=== PATIENT | male | born 1975 | race Caucasian/White ===

== ENCOUNTER 2020-11-06 08:46 | Inpatient (IN) | payer OTHER ==
[~2020-11-06] VITALS: Ht 188 cm; Wt 88.0 kg
--- NOTE | 2020-11-06 09:00 | NUR ---
PT IS IN ROOM #2A. DR BUENO EVALUATED THE PT.
[2020-11-06] MEDS ORDERED: VANCOMYCIN IV 1,000 MG in IV DEXTROSE 5% 250 ML IV ONE (09:15)
[2020-11-06] MEDS ORDERED: IV NORMAL SALINE 1000 ML BAG IV ONE (09:15)
[2020-11-06] MEDS ORDERED: ONDANSETRON 4 MG/2 ML VIAL IV ONE (09:15)
[2020-11-06] MEDS ORDERED: HYDROMORPHONE 1 MG/1 ML DISP.SYRIN IV ONE (09:15)
[2020-11-06] MEDS ORDERED: CEFTRIAXONE 1 G in IV DEXTROSE 5% 50 ML IV ONE (09:15)
[2020-11-06] MEDS ORDERED: SWABABLE VALVE TRANSFER SET EA MC ONE (09:23)
[2020-11-06] MEDS ORDERED: IV NORMAL SALINE 250 ML IV ONE (09:24)
[2020-11-06] MEDS ORDERED: IOHEXOL 300MG/ML 100 ML INFUS..BTL ONE (09:24)
[2020-11-06 09:34] LABS: HEMATOCRIT 41.3 % (36.7-47.1); MEAN CORPUSCULAR HEMOGLOBIN 29.9 uug (23.8-33.4); MEAN CORPUSCULAR VOLUME 88.3 fL (73.0-96.2); PLATELET COUNT (AUTO) 290 K/uL (152-348)
[2020-11-06] MEDS ORDERED: HYDROMORPHONE 1 MG/1 ML DISP.SYRIN ONE (09:36)
[2020-11-06] MEDS ORDERED: ONDANSETRON 4 MG/2 ML VIAL ONE (09:36)
[2020-11-06] MEDS ORDERED: VANCOMYCIN IV 200 ML ONE (09:37)
[2020-11-06] MEDS ORDERED: CEFTRIAXONE /D5W 50ML IVPB **ER PYXIS IV ONE (09:37)
[2020-11-06 09:43] LABS: CARBON DIOXIDE 27 mmol/L (21-32); CHLORIDE 102 mmol/L (98-107); CREATININE 1.2 mg/dL (0.6-1.3); GLUCOSE 159 mg/dL (74-106); POTASSIUM 4.2 mmol/L (3.5-5.1); UREA NITROGEN, BLOOD 15 mg/dL (7-18)
[2020-11-06 09:56] LABS: ALANINE AMINOTRANSFERASE 18 U/L (16-63); ALKALINE PHOSPHATASE 88 U/L (50-136); ASPARTATE AMINOTRANSFERASE 12 U/L (15-37); BILIRUBIN,DIRECT < 0.1 mg/dL (0.0-0.2); BILIRUBIN,TOTAL 0.2 mg/dL (0.2-1.0); TOTAL PROTEIN, SERUM 7.3 g/dL (6.4-8.2)
[2020-11-06 13:09] LABS: *BILIRUBIN,URIN NEGATIVE (NEGATIVE); *BLOOD, URINE NEGATIVE (NEGATIVE); *CLARITY,URINE SLIGHTLY CLOUDY (CLEAR); *COLOR,URINE YELLOW (YELLOW); *KETONES,URINE NEGATIVE (NEGATIVE); *UROBILINOGEN,URINE 0.2 E.U./dl (NORMAL); LEUKOCYTE ESTERASE ,URINE NEGATIVE (NEGATIVE); NITRITE, URINE NEGATIVE (NEGATIVE); PH,URINE 5.5 (5.0-8.0); UGLUCOSE NEGATIVE (NEGATIVE)
[2020-11-06] MEDS: IV NS 1000 ML 1,000 ML IV PRN (13:15)
[2020-11-06] MEDS ORDERED: ACETAMINOPHEN 325 MG TABLET PO PRN (13:15)
[2020-11-06] MEDS ORDERED: MAGNESIUM HYDROXIDE 30 ML LIQUID UDC PO PRN (13:15)
[2020-11-06] MEDS ORDERED: ZOLPIDEM 5 MG TABLET PO PRN (13:15)
[2020-11-06] MEDS ORDERED: HYDROCODONE/APAP 5-325MG TABLET PO PRN (13:15)
[2020-11-06] MEDS ORDERED: Z GUARD REMEDY PASTE 57 GM TUBE TOP PRN (13:15)
[2020-11-06] MEDS ORDERED: ONDANSETRON 4 MG/2 ML VIAL IV PRN (13:15)
--- NOTE | 2020-11-06 13:37 | NUR ---
REPORT WAS GIVEN TO RN M/S. PT WAS TRANSFERED TO ROOM #301A.
[2020-11-06 14:22] LABS: BACTERIA,URINE MODERATE /HPF (NONE SEEN); CALCIUM OXALATE CRYSTALS,UR MODERATE /HPF (NONE SEEN); SQUAMOUS EPITHELIAL CELL,UR FEW /HPF (NONE SEEN); URINE AMORPHOUS URATE MODERATE /HPF
--- NOTE | 2020-11-06 14:30 | NUR ---
Received patient from ED via [facility]. Patient awake, alert and oriented x 4. On room air. No signs of acute distress. Oriented patient to unit and room. Call light within reach. Bed locked and in low position. Will continue to monitor.
[2020-11-06] MEDS: PIPERACILLIN SODIUM/TAZOBACTAM 3.375 G in IV DEXTROSE 5% 50 ML IV SCH ×2 (16:43→21:12)
[2020-11-06] MEDS: VANCOMYCIN IV 1,500 MG in IV DEXTROSE 5% 500 ML IV SCH (18:09)
[2020-11-06 20:00] VITALS: BP 108/61
[2020-11-07] MEDS: PIPERACILLIN SODIUM/TAZOBACTAM 3.375 G in IV DEXTROSE 5% 50 ML IV SCH ×4 (02:28→22:36)
[2020-11-07 04:00] VITALS: BP 114/65
[2020-11-07] MEDS: VANCOMYCIN IV 1,500 MG in IV DEXTROSE 5% 500 ML IV SCH ×2 (05:22→17:34)
--- NOTE | 2020-11-07 06:12 | NUR ---
Shift End Report: Vs stable. Continue on IV antibiotics of Merrem and Vancomycin without s/s of adverse reaction noted. No complaint of pain presented. Slept good. No significant event reported all night. All needs attended and met. Continue care as planned.
[2020-11-07 06:25] LABS: HEMATOCRIT 38.5 % (36.7-47.1); MEAN CORPUSCULAR HEMOGLOBIN 28.8 uug (23.8-33.4); MEAN CORPUSCULAR VOLUME 87.4 fL (73.0-96.2); PLATELET COUNT (AUTO) 305 K/uL (152-348)
[2020-11-07 06:46] LABS: CREATININE 1.1 mg/dL (0.6-1.3); POTASSIUM 4.5 mmol/L (3.5-5.1)
[2020-11-07 11:23] VITALS: BP 125/67
--- NOTE | 2020-11-07 14:04 | NUR ---
Candy Butcher Consultation: Candy Butcher consultation requested for homelessness. Per patient's chart, patient came to the ED for a right buttock abscess. This MILK AND CREAM GRADER met with the patient in his hospital room. Patient is a 45 year old male, awake, alert, oriented, receptive to speaking with this MILK AND CREAM GRADER. Patient reports being homeless off-and-on for about 7 years. Patient [place] [address] [place] [facility]. Patient states he received some donated clothing, and believes there may have been bugs in the clothes which resulted in a bug bite that developed into an abscess. Patient states that he asked his friend to drive him to the hospital on 11/06 to seek treatment. Patient is independent with ADL's, has [employer] insurance, however stated he does not have any income from the government. 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 Patient denied having any significant medical problems. Patient denied mental illness. 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 Patient stated he has been using meth for years. Patient reported being in rehab "a long time ago" for substance use, however he relapsed soon afterwards. Discharge plans discussed, and patient stated he is open to going to a [place] facility, if one is available. Otherwise, patient stated he will return to his previous living arrangement. This MILK AND CREAM GRADER offered patient the homeless resource packet, and patient was receptive. This MILK AND CREAM GRADER also offered patient information on the local [facility] office where patient can inquire about social security/GR benefits, and patient was receptive. This MILK AND CREAM GRADER provide patient with the following resources: 1) [facility]: [address] [facility] [place] [address]; / 2) provided the homeless resource packet to the patient, which includes the following information: a list of year round shelters [facility] [address], ; [facility] [address] [facility], ; and [facility] [address] [facility], . Additional shelters: [facility], ; [facility], [address], [address], ; [facility], [address] [facility], [address], ; [facility], [facility], [address] [address], [address], ; [facility], [address] [place] [address], ; [facility], [facility], [address] [place] [address], ; [facility], [address] [place] [address], [address], . [facility] homeless directory which provides a list of places that individuals can go to throughout the week for hot meals, sack lunches, food pantries, and showers; a list of mental health clinics: [facility] [address] [place] [address], ; [facility] [address] [place] [address], ; [facility] [address] [place] [address], ; a list of medical clinics: [facility] [address] [facility] [address], [place]. [place], ; [facility] [address] [facility], [address] [facility] [place] [address]; [facility] [address] [facility] [address], ; and a list of substance abuse programs: [facility] Substance Abuse Self-helpline ; [facility] ; [facility] ; [facility] ; [facility] [place] ; [facility] [phone]; [facility] [phone]. SW also provided patient with information on locations of pharmacies. Patient signed the homeless patient waiver form, and this MILK AND CREAM GRADER filed the form in the patient's chart.
[2020-11-07 15:39] VITALS: BP 146/60
--- NOTE | 2020-11-07 17:09 | NUR ---
End of shift note: Patient continue ATB treatment for right buttocks cellulitis. no adverse reaction noted. not in distress. no c/o of pain/discomfort noted. will continue monitor
[2020-11-07] MEDS: HYDROMORPHONE 1 MG/1 ML DISP.SYRIN IV PRN (17:44)
--- NOTE | 2020-11-07 18:20 | NUR ---
End of shift note Patient complaint of pain on IV site, redness and slight swelling noted. Remove and DC IV, Applied new line to RFA G22. will continue monitor
[2020-11-07 20:00] VITALS: BP 119/69
[2020-11-08] MEDS: IV NS 1000 ML 1,000 ML IV PRN (01:38)
[2020-11-08] MEDS: PIPERACILLIN SODIUM/TAZOBACTAM 3.375 G in IV DEXTROSE 5% 50 ML IV SCH ×4 (02:50→20:49)
--- NOTE | 2020-11-08 03:08 | NUR ---
Received patient resting in bed, in no acute distress. VSS denies any pain/ discomfort at this time. AXO x4, able to make needs known. All due medications administered and tolerated well. IV RFA 22G intact and running antibiotics and fluids, tolerating well. @300 patient IV dislodged, new IV established @ Left FA 20G, patent and intact infusing antibiotics. will continue to monitor
[2020-11-08 04:00] VITALS: BP 121/68
[2020-11-08] MEDS: VANCOMYCIN IV 1,500 MG in IV DEXTROSE 5% 500 ML IV SCH ×2 (05:50→17:20)
[2020-11-08 05:55] LABS: HEMATOCRIT 41.4 % (36.7-47.1); MEAN CORPUSCULAR HEMOGLOBIN 29.3 uug (23.8-33.4); MEAN CORPUSCULAR VOLUME 86.9 fL (73.0-96.2); PLATELET COUNT (AUTO) 310 K/uL (152-348)
[2020-11-08 11:25] VITALS: BP 124/77
--- NOTE | 2020-11-08 12:20 | NUR ---
WOUND CARE CONSULT: RT BUTTOCK NECROTIC WOUND/LESION NOTED WITH SURROUNDING REDNESS AND INDURATION, PRESENT ON ADMISSION. DR DELL TONEY NOTIFIED OF SURGICAL CONSULT REQUEST PER PMD. IN AGREEMENT WITH PLAN OF CARE.
[2020-11-08 15:40] VITALS: BP 113/75
[2020-11-08 20:00] VITALS: BP 114/72
--- NOTE | 2020-11-08 20:00 | NUR ---
RECEIVED PATIENT AWAKE IN BED. A/O X4. DENIES ANY PAIN OR DISCOMFORT. NO RESP. DISTRESS NOTED. H/L INTACT AND PATENT, NOTED TO RIGHT FA #20 GAUGE. CALL LIGHT IN REACH. ALL NEEDS ATTENDED. WILL CONTINUE TO MONITOR AND ASSESS.
[2020-11-09] MEDS: PIPERACILLIN SODIUM/TAZOBACTAM 3.375 G in IV DEXTROSE 5% 50 ML IV SCH ×4 (02:41→20:27)
[2020-11-09 04:00] VITALS: BP 119/61
[2020-11-09] MEDS: VANCOMYCIN IV 1,500 MG in IV DEXTROSE 5% 500 ML IV SCH ×2 (05:35→17:02)
[2020-11-09] MEDS: HYDROMORPHONE 1 MG/1 ML DISP.SYRIN IV PRN ×2 (06:51→17:52)
--- NOTE | 2020-11-09 07:10 | NUR ---
RECEIVED PATIENT IN BED SLEEPING IN STABLE CONDITION, NO S/S OF ANY SOB, PAIN OR DISCOMFORT NOTED AT THIS TIME. CALL LIGHT KEPT WITHIN REACH. WILL CONTINUE TO MONITOR.
[2020-11-09 12:00] VITALS: BP 122/79
[2020-11-09 16:00] VITALS: BP 111/77
--- NOTE | 2020-11-09 18:02 | NUR ---
patient in bed awake and alert, in stable condition watching tv. pain medication given. no complains of any SOB at this time. IV patient and intact vancomicin running at this time. will report to oncoming nurse.
[2020-11-09 20:00] VITALS: BP 126/71
[2020-11-10] MEDS: PIPERACILLIN SODIUM/TAZOBACTAM 3.375 G in IV DEXTROSE 5% 50 ML IV SCH ×3 (02:37→14:45)
[2020-11-10 04:00] VITALS: BP 123/83
[2020-11-10] MEDS: VANCOMYCIN IV 1,500 MG in IV DEXTROSE 5% 500 ML IV SCH (05:21)
[2020-11-10] MEDS: HYDROMORPHONE 1 MG/1 ML DISP.SYRIN IV PRN (05:38)
[2020-11-10 12:00] VITALS: BP_SYST 123; BP_SYST 134; BP_DIAS 59; BP_DIAS 87
[2020-11-10] MEDS ORDERED: AMOX-430 PO (14:36)
--- NOTE | 2020-11-10 15:26 | NUR ---
dc orders received noted and carried out,dc instruction and education given to the pt,pt said he will follow up with his pcp .dc heplock per md orders,pt left the facility via walking from the hospital in stable condition in proper clothing
== END 2020-11-10 15:29 | disposition home or self-care (01) | DRG 364 ==
LOC: ER 08:46 → MEDSURG3 13:16
PROVIDERS: ADMIT Nurse Practitioner Acute Care; ATTEND Nurse Practitioner Acute Care
PROC: 0J990ZZ Drainage of Buttock Subcutaneous Tissue and Fascia, Open Approach (ICD-10-PCS; principal; 2020-11-10)
DX: L03.317 Cellulitis of buttock (principal); D72.829 Elevated white blood cell count, unspecified; M48.061 Spinal stenosis, lumbar region without neurogenic claudication; R73.9 Hyperglycemia, unspecified; Z59.0 Homelessness; L02.31 Cutaneous abscess of buttock; Z20.822 Contact with and (suspected) exposure to COVID-19; F19.90 Other psychoactive substance use, unspecified, uncomplicated
CPT/HCPCS: 36415; 70030-TC; 72193; 83605; 83735; 84100; 85025; 87040; 87070; 87077; 87086; 93005; A4217; A4663; G0378; J0696; J1170; J2405; J2543; J3370; J7030; J7050; J7060; Q9967